=== PATIENT | female | born 1980 | race Caucasian/White ===

== ENCOUNTER 2017-02-27 13:34 | Emergency (ER) | payer OTHER ==
[~2017-02-27] VITALS: Ht 175.3 cm; Wt 81.6 kg
--- NOTE | 2017-02-27 14:20 | Emergency Room Report ---
History of Present Illness General Chief Complaint: Abdominal Pain Source: Patient, EMS Present Illness HPI 36-year-old female with history of diabetes p/w abdominal pain 3-4 hours. Patient states pain started suddenly, patient states that she felt some cramping at work, when she got up to walk she felt a pop in her abdomen, and says that since then it has been very painful., Pain is localized to mid and right lower quadrant, non radiating, sharp in nature, intermittent. No relieving or exacerbating factors. Severity is currently 5/10. Reports nausea but no vomiting or diarrhea Denies fever, chills. No hx of abdominal surgeries. No hx of endoscopies/colonoscopies. States that she is not currently on her period. States that there is 0 suspicion that she could be . No sexual activity. No abnormal vaginal discharge no history of STDs Allergies: Coded Allergies: PENICILLINS (Verified Allergy, Unknown, 02/27/17) Patient History Past Medical History: see triage record Past Surgical History: none Pertinent Family History: none Last Menstrual Period: "LAST MONTH" Reviewed Nursing Documentation: PMH: Agreed, PSxH: Agreed Nursing Documentation-PMH Past Medical History: No History, Except For Hx Asthma: Yes Hx Diabetes: Yes Review of Systems All Other Systems: negative except mentioned in HPI Physical Exam Vital Signs Date Time Temp Pulse Resp B/P (MAP) Pulse Ox O2 Delivery O2 Flow Rate FiO2 02/27/17 13:28 98.1 90 18 123/86 98 Room Air Sp02 EP Interpretation: reviewed, normal General Appearance: alert, GCS 15, non-toxic, mild distress Head: normocephalic, atraumatic Eyes: bilateral eye normal inspection, bilateral eye PERRL, bilateral eye EOMI ENT: normal ENT inspection, normal pharynx, normal voice, moist mucus membranes Neck: normal inspection, full range of motion, supple Respiratory: normal inspection, lungs clear, normal breath sounds, no respiratory distress, no retraction, no wheezing, speaking full sentences, chest symmetrical Cardiovascular #1: normal inspection, regular rate, rhythm, no edema, normal capillary refill Cardiovascular #2: 2+ radial (R), 2+ radial (L) Gastrointestinal: other - Periumbilical and right lower quadrant tenderness, no peritoneal, no rebound, normal bowel sounds Musculoskeletal: normal inspection, back normal, normal range of motion, non- tender Neurologic: normal inspection, alert, oriented x3, responsive, motor strength/ tone normal, sensory intact, normal gait, speech normal Psychiatric: normal inspection, judgement/insight normal, memory normal Skin: normal inspection, normal color, no rash, warm/dry, well hydrated, normal turgor Medical Decision Making Diagnostic Impression: Primary Impression: Intractable abdominal pain ER Course 36-year-old female with abdominal pain Differential Diagnosis: Gastritis, gastroenteritis, cholecystitis, appendicitis, diverticulitis, SBO, UTI/pyelo Plan: Basic labs, ua, ekg Pepcid, maalox, pain control, IVF CT abdo pelvis ER course: Patient has remained stable during ED stay. Pt states pain still not better CT abdo pelvis unremarkable will admit for intractable pain Disposition: Patient will be transferred to [place] for intractable abdominal pain, Med surg D/W Dr Gibbs Please note that this Emergency Department Report was dictated using Studio [employer] machine operator technology software, occasionally this can lead to erroneous entry secondary to interpretation by the dictation equipment Rhythm Strip EP Interpretation: Yes Rate: 87 Rhythm: NSR, no PVCs, no ectopy Laboratory Tests Test 02/27/17 14:00 White Blood Count 12.3 K/UL (4.8-10.8) H Red Blood Count 4.78 M/UL (4.20-5.40) Hemoglobin 15.0 G/DL (12.0-16.0) Hematocrit 43.3 % (37.0-47.0) Mean Corpuscular Volume 91 FL (80-99) Mean Corpuscular Hemoglobin 31.3 PG (27.0-31.0) H Mean Corpuscular Hemoglobin Concent 34.6 G/DL (32.0-36.0) Red Cell Distribution Width 11.5 % (11.6-14.8) L Platelet Count 268 K/UL (150-450) Mean Platelet Volume 6.3 FL (6.5-10.1) L Neutrophils (%) (Auto) 59.1 % (45.0-75.0) Lymphocytes (%) (Auto) 33.0 % (20.0-45.0) Monocytes (%) (Auto) 5.3 % (1.0-10.0) Eosinophils (%) (Auto) 1.9 % (0.0-3.0) Basophils (%) (Auto) 0.7 % (0.0-2.0) Urine Color Pale yellow Urine Appearance Slightly cloudy Urine pH 6.5 (4.5-8.0) Urine Specific [place] 1.020 (1.005-1.035) Urine Protein Negative (NEGATIVE) Urine Glucose (UA) 4+ (NEGATIVE) H Urine Ketones 1+ (NEGATIVE) H Urine Occult Blood 3+ (NEGATIVE) H Urine Nitrite Negative (NEGATIVE) Urine Bilirubin Negative (NEGATIVE) Urine Urobilinogen Normal MG/DL (0.0-1.0) Urine Leukocyte Esterase 3+ (NEGATIVE) H Urine RBC 10-15 /HPF (0 - 2) H Urine WBC 30-40 /HPF (0 - 2) H Urine Squamous Epithelial Cells Moderate /LPF (NONE/OCC) H Urine Bacteria Few /HPF (NONE) Urine Yeast Occasional /HPF (NONE) H Urine HCG, Qualitative Negative Sodium Level 136 MMOL/L (136-145) Potassium Level 3.8 MMOL/L (3.5-5.1) Chloride Level 99 MMOL/L (98-107) Carbon Dioxide Level 27 MMOL/L (21-32) Anion Gap 10 mmol/L (5-15) Blood Urea Nitrogen 8 mg/dL (7-18) Creatinine 0.8 MG/DL (0.55-1.30) Estimate Glomerular Filtration Rate > 60 mL/min (>60) Glucose Level 250 MG/DL (74-106) H Calcium Level 8.8 MG/DL (8.5-10.1) Total Bilirubin 0.4 MG/DL (0.2-1.0) Aspartate Amino Transferase (AST) 16 U/L (15-37) Alanine Aminotransferase (ALT) 32 U/L (12-78) Alkaline Phosphatase 58 U/L (46-116) Total Protein 7.2 G/DL (6.4-8.2) Albumin 3.6 G/DL (3.4-5.0) Globulin 3.6 g/dL Albumin/Globulin Ratio 1.0 (1.0-2.7) Lipase 160 U/L (73-393) CT/MRI/US Diagnostic Results CT/MRI/US Diagnostic Results : Imaging Test Ordered: CT abdo pelvis Impression Findings: The liver is hypodense and enlarged. Lung bases are clear. Gallbladder , kidneys, pancreas, spleen appear unremarkable. There is minimal free fluid in the pelvis which may be physiologic given age and sex of the patient. Ovaries and uterus noted. Appendix is not definitely seen but there are no secondary signs of acute appendicitis. No evidence of free air or bowel obstruction. IMPRESSION: Hepatomegaly with fatty infiltration. Last Vital Signs Date Time Temp Pulse Resp B/P (MAP) Pulse Ox O2 Delivery O2 Flow Rate FiO2 02/27/17 13:28 98.1 90 18 123/86 98 Room Air Disposition: ADMITTED INPATIENT Condition: Serious Yesenia Mcadams M.D. Feb 27, 2017 14:20
[2017-02-27] MEDS ORDERED: Morphine Sulfate 4mg/ml Inj IVP ONE ×2 (14:30→16:00)
[2017-02-27 14:40] LABS: BASOPHILS % (AUTO) 0.7 % (0.0-2.0); EOSINOPHILS % (AUTO) 1.9 % (0.0-3.0); MEAN CORPUSCULAR HEMOGLOBIN 31.3 PG (27.0-31.0); MEAN CORPUSCULAR HGB CONC 34.6 G/DL (32.0-36.0); MEAN CORPUSCULAR VOLUME 91 FL (80-99); MEAN PLATELET VOLUME 6.3 FL (6.5-10.1); MONOCYTES % (AUTO) 5.3 % (1.0-10.0); NEUTROPHILS % (AUTO) 59.1 % (45.0-75.0); PLATELET COUNT 268 K/UL (150-450); RED BLOOD COUNT 4.78 M/UL (4.20-5.40); RED CELL DISTRIBUTION WIDTH 11.5 % (11.6-14.8); WHITE BLOOD COUNT 12.3 K/UL (4.8-10.8)
[2017-02-27 14:41] LABS: APPEARANCE,URINE SLIGHTLY CLOUDY; KETONES,URINE 1+ (NEGATIVE); LEUKOCYTE ESTERASE ,URINE 3+ (NEGATIVE); NITRITE,URINE NEGATIVE (NEGATIVE); PH,URINE 6.5 (4.5-8.0); PROTEIN,URINE NEGATIVE (NEGATIVE); UROBILINOGEN,URINE NORMAL MG/DL (0.0-1.0)
[2017-02-27 14:51] LABS: SQUAMOUS EPITHELIAL CELL,UR MODERATE /LPF (NONE/OCC); WBC,URINE 30-40 /HPF (0 - 2)
[2017-02-27 14:52] LABS: ANION GAP 10 mmol/L (5-15); BACTERIA,URINE FEW /HPF; CALCIUM 8.8 MG/DL (8.5-10.1); CARBON DIOXIDE 27 MMOL/L (21-32); CHLORIDE 99 MMOL/L (98-107); CREATININE 0.8 MG/DL (0.55-1.30); GLOMERULAR FILTRATION RATE > 60 mL/min (>60); POTASSIUM 3.8 MMOL/L (3.5-5.1); SODIUM 136 MMOL/L (136-145); YEAST,URINE OCCASIONAL /HPF
[2017-02-27 15:07] LABS: ALANINE AMINOTRANSFERASE 32 U/L (12-78); ASPARTATE AMINO TRANSFERASE 16 U/L (15-37); LIPASE 160 U/L (73-393); TOTAL PROTEIN 7.2 G/DL (6.4-8.2)
[2017-02-27 15:30] VITALS: BP 132/81
--- NOTE | 2017-02-27 15:54 | Diagnostic Imaging Report ---
Indication: Abdominal pain Technique: Continuous helical transaxial imaging of the abdomen and pelvis was obtained from the lung bases to the pubic symphysis during intravenous contrast administration. Coronal 2-D reformats were also obtained. Study obtained in a Siemens sensation [address] Automatic Exposure Control was utilized. Total Dose length Product (DLP): 1152.[address] Dose Index Volume (CTDIvol): 19.95 mGy Comparison: None Findings: The liver is hypodense and enlarged. Lung bases are clear. Gallbladder, kidneys, pancreas, spleen appear unremarkable. There is minimal free fluid in the pelvis which may be physiologic given age and sex of the patient. Ovaries and uterus noted. Appendix is not definitely seen but there are no secondary signs of acute appendicitis. No evidence of free air or bowel obstruction. IMPRESSION: Hepatomegaly with fatty infiltration. The CT scanner at [facility] is accredited by the [employer] and the scans are performed using dose optimization techniques as appropriate to a performed exam including Automatic Exposure control.
[2017-02-27] MEDS ORDERED: Mylanta II UD 30ml ORAL ONE (16:00)
[2017-02-27] MEDS ORDERED: Dicyclomine HCl 10mg/5ml oral soln ORAL ONE (16:00)
[2017-02-27] MEDS ORDERED: Lidocaine 2% Visc 15ml soln ORAL ONE (16:00)
[2017-02-27 17:30] VITALS: BP 131/78
[2017-02-27 18:34] VITALS: BP 125/78
[2017-02-27 18:38] VITALS: BP 125/78
== END 2017-02-27 18:43 | disposition other institution (70) ==
LOC: EDBD 13:34 → EMR 13:57
DX: R10.9 Unspecified abdominal pain (principal); E11.9 Type 2 diabetes mellitus without complications; J45.909 Unspecified asthma, uncomplicated; Z88.0 Allergy status to penicillin
CPT/HCPCS: 36415; 74177; 80053; 81003; 81025; 83690; 85025; 87086; 99285; J2270; Q9967; S0028